=== PATIENT | male | born 1955 | race Caucasian/White ===

== ENCOUNTER 2021-11-22 08:16 | Day surgery (SDC) | payer OTHER ==
[2021-11-19 14:02] VITALS: BMI 25.8
[2021-11-22] MEDS ORDERED: BUPIVACAINE HCL/PF 2.5 MG/ML - 30 ML VIAL IJ ONE (11:45)
[2021-11-22] MEDS ORDERED: EPINEPHrine 1:1,000 1,000 MCG/ML ML ONE (11:52)
[2021-11-22] MEDS ORDERED: oxyCODONE HCL 5 MG TABLET PO PRN ×2 (11:59→13:04)
[2021-11-22] MEDS ORDERED: ONDANSETRON 4 MG/2 ML VIAL IVPUSH PRN ×2 (11:59→13:04)
[2021-11-22] MEDS ORDERED: LACTATED RINGERS SOLUTION 1,000 ML IV SCH (12:00)
[2021-11-22] MEDS ORDERED: FENTANYL CITRATE/PF 50 MCG/ML VIAL ONE (12:11)
[2021-11-22] MEDS ORDERED: PROPOFOL 20 ML ONE ×2 (12:13→12:22)
[2021-11-22] MEDS ORDERED: PROMETHAZINE HCL 25 MG/1 ML VIAL IVPUSH PRN (13:04)
[2021-11-22 14:03] VITALS: TEMP 98.1
[2021-11-22 14:28] VITALS: BP 135/78; PULSE 84
== END 2021-11-22 14:25 | disposition home or self-care (01) ==
LOC: FASU 08:16
PROVIDERS: ATTEND Orthopaedic Surgery Sports Medicine
PROC: 0SQD4ZZ Repair Left Knee Joint, Percutaneous Endoscopic Approach (ICD-10-PCS; 2021-11-22)
PROC: 0SBD4ZZ Excision of Left Knee Joint, Percutaneous Endoscopic Approach (ICD-10-PCS; principal; 2021-11-22 12:32)
PROC: 0SBD4ZZ Excision of Left Knee Joint, Percutaneous Endoscopic Approach (ICD-10-PCS; 2021-11-22 12:32)
DX: S83.242A Other tear of medial meniscus, current injury, left knee, initial encounter (principal); S83.282A Other tear of lateral meniscus, current injury, left knee, initial encounter; S83.32XA Tear of articular cartilage of left knee, current, initial encounter; X58.XXXA Exposure to other specified factors, initial encounter; Y93.9 Activity, unspecified; Y92.9 Unspecified place or not applicable
CPT/HCPCS: 94760